=== PATIENT | female | born 1995 | race African-American/Black ===

== ENCOUNTER 2016-06-23 16:34 | Emergency (ER) | payer OTHER, MEDICAID ==
[~2016-06-23 16:34] MED LIST: IBUPROFEN800 MG PO; IRON325 M1 PO; NORCO 5/325 TAB1 TAB PO; PRENATAL VITAMI1 TAB PO
[2016-06-23] MEDS ORDERED: CATAPRES0.1 M1 PO (17:00)
[2016-06-23] MEDS ORDERED: BACITRACIN3.5 G1 TOP (17:56)
== END 2016-06-23 18:43 ==
LOC: EDMED 16:34
DX: S80.212A Abrasion, left knee, initial encounter (principal); S90.812A Abrasion, left foot, initial encounter; S80.812A Abrasion, left lower leg, initial encounter; F17.200 Nicotine dependence, unspecified, uncomplicated; V03.90XA Pedestrian on foot injured in collision with car, pick-up truck or van, unspecified whether traffic or nontraffic accident, initial encounter; Y92.410 Unspecified street and highway as the place of occurrence of the external cause